=== PATIENT | female | born 1975 | race American Indian/Alaskan Native ===

== ENCOUNTER 2016-09-09 21:53 | Emergency (ER) | payer MEDICAID ==
[2016-09-09 22:06] VITALS: BMI 36.6
[2016-09-09 22:13] VITALS: RESP 20
[2016-09-09] MEDS ORDERED: Morphine 4 mg/ml ISec IVP STA (22:32)
[2016-09-09] MEDS ORDERED: Sodium Chloride 0.9% 1,000 ML IV STA (22:32)
--- NOTE | 2016-09-09 22:36 | ED PDOC ---
Arrival/HPI <Lew Jones - Last Filed: 09/09/16 23:19> - General Historian: Patient <Angel Silva - Last Filed: 09/10/16 00:13> - General Chief Complaint: Upper Extremity Problem/Injury Time Seen by Provider: 09/09/16 22:25 - History of Present Illness Narrative History of Present Illness (Text): 09/09/16 22:36 40 y/o female, pmh including rheumatoid arthritis and htn, nkda c/o rheumatoid flared up pain again x 2 days with no fall or trauma. Pt. stated that she has rt. elbow and generalized joint pain for the past 2 days, most severely today, no history of sickle cell disease, no fever or chills, no headache or night sweat, no numbness or tingling, no other medical or psychological complaints. ( Angel Silva) Past Medical History - Provider Review Nursing Documentation Reviewed: Yes - Infectious Disease Hx of Infectious Diseases: None - Cardiac Hx Hypertension: Yes - Pulmonary Hx Respiratory Disorders: No - Neurological Hx Neurological Disorder: No - HEENT Hx HEENT Disorder: No - Renal Hx Renal Disorder: No - Endocrine/Metabolic Hx Endocrine Disorders: No - Hematological/Oncological Hx Blood Disorders: No - Integumentary Hx Dermatological Disorder: No - Musculoskeletal/Rheumatological Hx Rheumatoid Arthritis: Yes Other/Comment: Carpal tunnel - Gastrointestinal Hx Gastrointestinal Disorders: No - Genitourinary/Gynecological Hx Genitourinary Disorders: No - Psychiatric Hx Psychophysiologic Disorder: No Hx Substance Use: Yes - Surgical History Hx Section: Yes - Anesthesia Hx Anesthesia: Yes Hx Anesthesia Reactions: No Hx Malignant Hyperthermia: No <Angel Silva - Last Filed: 09/10/16 00:13> Family/Social History - Physician Review Nursing Documentation Reviewed: Yes Family/Social History: Unknown Family HX Smoking Status: Heavy Smoker > 10 Cigarettes Daily Hx Alcohol Use: Yes Hx Substance Use: Yes Substance used: Marijuana <Angel Silva - Last Filed: 09/10/16 00:13> Allergies/Home Meds <Lew Jones - Last Filed: 09/09/16 23:19> <Angel Silva - Last Filed: 09/10/16 00:13> Allergies/Adverse Reactions: Allergies No Known Allergies Allergy (Verified 08/04/16 21:26) Home Medications: Home Meds Medication Instructions Recorded Confirmed Etanercept [Enbrel] 50 mg SQ QWK 08/17/16 08/17/16 Meloxicam [Mobic] 15 mg PO DAILY 08/17/16 08/17/16 Methotrexate 0 mg PO 08/17/16 Oxycodone HCl/Acetaminophen 1 each PO PRN PRN 08/17/16 08/17/16 [Percocet 10-325 mg Tablet] Valsartan [Diovan] 80 mg PO DAILY 08/17/16 08/17/16 amLODIPine [Norvasc] 10 mg PO DAILY 08/17/16 08/17/16 Review of Systems - Review of Systems Constitutional: absent: Fatigue, Fevers Eyes: absent: Vision Changes ENT: absent: Hearing Changes Respiratory: absent: Cough, Sputum Cardiovascular: absent: Chest Pain Gastrointestinal: absent: Abdominal Pain, Nausea, Vomiting Musculoskeletal: Arthralgias, Myalgias. absent: Back Pain, Neck Pain, Joint Swelling Skin: absent: Rash, Pruritis, Skin Lesions, Laceration, Abscess, Ulcer, Cellulitis Neurological: absent: Headache, Dizziness, Focal Weakness, Gait Changes, Speech Changes, Facial Droop, Disequilibrium, Seizure Psychiatric: absent: Anxiety, Depression, Suicidal Ideation <Angel Silva Q - Last Filed: 09/10/16 00:13> Physical Exam Vital Signs Reviewed: Yes Temperature: Afebrile Blood Pressure: Normal Pulse: Regular Respiratory Rate: Normal Appearance: Positive for: Well-Appearing, Non-Toxic, Uncomfortable Pain Distress: Severe Mental Status: Positive for: Alert and Oriented X 3 - Systems Exam Head: Present: Atraumatic, Normocephalic Pupils: Present: PERRL Extroacular Muscles: Present: EOMI Conjunctiva: Present: Normal Mouth: Present: Moist Mucous Membranes Neck: Present: Normal Range of Motion Respiratory/Chest: Present: Clear to Auscultation, Good Air Exchange. No: Respiratory Distress, Accessory Muscle Use Cardiovascular: Present: Regular Rate and Rhythm, Normal S1, S2. No: Murmurs Abdomen: Present: Normal Bowel Sounds. No: Tenderness, Distention, Peritoneal Signs Back: Present: Normal Inspection Upper Extremity: Present: Normal Inspection, Normal ROM, NORMAL PULSES, Neurovascularly Intact, Capillary Refill < 2s, Norm 2-Pt Discrimination. No: Cyanosis, Edema, Swelling, Erythema, Temperature Abnormalties, Deformity Lower Extremity: Present: Normal Inspection, Normal ROM, Capillary Refill < 2 s. No: Edema, Deformity Neurological: Present: GCS=15, Speech Normal, Motor Func Grossly Intact, Gait Normal, Memory Normal Skin: Present: Warm, Dry, Normal Color. No: Rashes Psychiatric: Present: Alert, Oriented x 3, Normal Insight, Normal Concentration <Angel Silva - Last Filed: 09/10/16 00:13> Vital Signs Temp Pulse Resp BP Pulse Ox 09/09/16 22:42 98.8 F 67 20 124/82 100 09/09/16 22:05 98.1 F 101 H 20 168/88 H 99 Medical Decision Making <Lew Jones - Last Filed: 09/09/16 23:19> - Lab Interpretations I have reviewed the lab results: Yes Interpretation: Abnormal lab values (K+2.9) <Angel Silva - Last Filed: 09/10/16 00:13> ED Course and Treatment: 09/09/16 22:43 -labs -IVF/toradol/solumedrol/morphine -observe and reassess 09/10/16 00:10 -Labs are non-significant except K+ 2.9 -Pain resolved with the medication, feeling much better now, request wiley wrap to the joint, wiley wraps applied with neurovascular intact. -Discharge home with education on continue your pain medication at home, wiley wrap, mobic, follow up with your own pmd and orthopedic within 2 days, return to the ER for any new or worsening signs or symptoms. (Angel Silva) - Lab Interpretations Lab Results: 09/09/16 23:00 09/09/16 23:00 Lab Results 09/09/16 23:40: Urine HCG, Qual Negative 09/09/16 23:00: WBC 8.8, RBC 4.37, Hgb 12.8, Hct 36.0, MCV 82.4, MCH 29.3, MCHC 35.6, RDW 15.0 H, Plt Count 261, MPV 10.5, Gran % 48.6 L, Lymph % (Auto) 40.3 H , Humphreys % (Auto) 9.3 H, Eos % (Auto) 1.3 L, Baso % (Auto) 0.5, Gran # 4.28, Lymph # 3.6 H, Humphreys # 0.8 H, Eos # 0.1, Baso # 0.04, Sodium 138, Potassium 2.9 L *, Chloride 101, Carbon Dioxide 30, Anion Gap 10, BUN 11, Creatinine 0.7, Est GFR ( Amer) > 60, Est GFR (Non-Af Amer) > 60, Random Glucose 84, Calcium 9.1, Total Bilirubin 0.4, AST 19, ALT 30, Alkaline Phosphatase 64, Total Protein 7.6, Albumin 3.6, Globulin 4.0, Albumin/Globulin Ratio 0.9 L - Medication Orders Current Medication Orders: Discontinued Medications Sodium Chloride (Sodium Chloride 0.9%) 1,000 mls @ 999 mls/hr IV .Q1H1M STA Stop: 09/09/16 23:32 Last Admin: 09/09/16 23:32 Dose: 999 MLS/HR eMAR Start Stop Document 09/09/16 23:32 EQ (Rec: 09/09/16 23:32 EQ [place] [id number]) Intravenous Solution Start Date 09/09/16 Start Time 23:32 Ketorolac Tromethamine (Toradol) 30 mg IVP STAT STA Stop: 09/09/16 22:33 Last Admin: 09/09/16 23:32 Dose: 30 MG IVP Administration Document 09/09/16 23:32 EQ (Rec: 09/09/16 23:32 EQ [id number]) Charges for Administration # of IVP Administrations 1 Methylprednisolone (Solu-Medrol) 125 mg IVP STAT STA Stop: 09/09/16 22:33 Last Admin: 09/09/16 23:32 Dose: 125 MG IVP Administration Document 09/09/16 23:32 EQ (Rec: 09/09/16 23:32 EQ [id number]) Charges for Administration # of IVP Administrations 1 Morphine Sulfate (Morphine) 4 mg IVP STAT STA Stop: 09/09/16 22:33 Last Admin: 09/09/16 23:31 Dose: 4 MG MAR Pain Assessment Document 09/09/16 23:31 EQ (Rec: 09/09/16 23:31 EQ [id number]) Pain Reassessment Is this a pain reassessment? No IVP Administration Document 09/09/16 23:31 EQ (Rec: 09/09/16 23:31 EQ [id number]) Charges for Administration # of IVP Administrations 1 Potassium Chloride (K-Dur 20 Meq Er Tab) 40 meq PO STAT STA Stop: 09/10/16 00:09 - PA / SECURITIES COMPLIANCE EXAMINER / Resident Statement KACEY has reviewed & agrees with the documentation as recorded. <Lew Jones - Last Filed: 09/09/16 23:19> - PA / SECURITIES COMPLIANCE EXAMINER / Resident Statement KACEY has reviewed & agrees with the documentation as recorded. <Angel Silva - Last Filed: 09/10/16 00:13> Disposition/Present on Arrival <Lew Jones - Last Filed: 09/09/16 23:19> - Present on Arrival Any Indicators Present on Arrival: No History of DVT/PE: No History of Uncontrolled Diabetes: No Urinary Catheter: No History of Decub. Ulcer: No History Surgical Site Infection Following: None - Disposition Have Diagnosis and Disposition been Completed?: Yes Disposition Time: 22:43 Patient Plan: Discharge <Angel Silva - Last Filed: 09/10/16 00:13> - Disposition Diagnosis: Arthritis, Pain management Disposition: HOME/ ROUTINE Patient Problems: Current Active Problems Problem Status Diagnosed Arthritis Acute Pain management Acute Condition: IMPROVED Additional Instructions: Discharge home with education on continue your pain medication at home, wiley letyap aleksandra, follow up with your own pmd and orthopedic within 2 days, return to the ER for any new or worsening signs or symptoms. Prescriptions: Meloxicam [Mobic] 15 mg PO DAILY PRN #14 tab PRN Reason: Other Referrals: Jinny Hines MD [Primary Care Provider] - Follow up with primary Jayson Martinez III, MD [Medical Doctor] - Follow up with primary Forms: WORK NOTE
[2016-09-09 22:44] VITALS: BP 124/82; PULSE 67; TEMP 98.8; O2SAT 100
[2016-09-09 23:10] LABS: ADD MANUAL DIFF? NO
[2016-09-09 23:17] LABS: BASO # 0.04 K/mm3 (0.0-2.0); BASO % 0.5 % (0.0-3.0); EOS # 0.1 (0.0-0.7); EOS % 1.3 % (1.5-5.0); GRAN # 4.28 (1.4-6.5); GRAN % 48.6 % (50.0-68.0); LYMPH # 3.6 (1.2-3.4); LYMPH % 40.3 % (22.0-35.0); MEAN CELL VOLUME 82.4 fL (80.0-105.0); MEAN CORPUSCULAR HEMOGLOBIN 29.3 pg (25.0-35.0); MEAN CORPUSCULAR HGB CONC 35.6 g/dl (31.0-37.0); MEAN PLATELET VOLUME 10.5 fl (7.0-11.0); MONO # 0.8 (0.1-0.6); MONO % 9.3 % (1.0-6.0); PLATELET COUNT 261 10^3/uL (120.0-450.0); WHITE BLOOD COUNT 8.8 10^3/ul (4.5-11.0)
[2016-09-09 23:23] LABS: ALB/GLOB RATIO 0.9 (1.1-1.8); ALKALINE PHOSPHATASE 64 U/L (38-133); ALT/SGPT 30 U/L (7-56); AST/SGOT 19 U/L (15-39); BILIRUBIN,TOTAL 0.4 mg/dL (0.2-1.3); BLOOD UREA NITROGEN 11 mg/dL (7-21); CALCIUM 9.1 mg/dL (8.4-10.5); CARBON DIOXIDE 30 mmol/L (21-33); CHLORIDE 101 mmol/L (98-107); GFR AFRICAN-AMERICAN > 60; GLUCOSE,RANDOM 84 mg/dL (70-110); SODIUM 138 mmol/L (132-148); TOTAL PROTEIN 7.6 g/dL (5.8-8.3)
[2016-09-09 23:25] LABS: POTASSIUM 2.9 mmol/L (3.6-5.0)
[2016-09-10] MEDS ORDERED: Potassium Chloride 20 mEq ER Tab PO STA (00:08)
== END 2016-09-10 00:20 | disposition home or self-care (01) ==
LOC: ED 21:53
DX: M19.90 Unspecified osteoarthritis, unspecified site (principal); I10 Essential (primary) hypertension; F17.210 Nicotine dependence, cigarettes, uncomplicated
CPT/HCPCS: 29240; 80053; 84703; 85025; 96374; 96375; 99284; J1885; J2270; J2930; J7040

== ENCOUNTER 2016-09-28 21:30 | Emergency (ER) | payer MEDICAID ==
[2016-09-28 21:31] VITALS: BMI 36.6
[2016-09-28 22:48] VITALS: TEMP 98
[2016-09-28] MEDS ORDERED: Morphine 4 mg/ml ISec IVP STA (23:04)
--- NOTE | 2016-09-28 23:09 | ED PDOC ---
Arrival/HPI <Lew Jones - Last Filed: 09/29/16 00:41> - General Historian: Patient - History of Present Illness Time/Duration: > month Symptom Onset: Gradual Symptom Course: Worsening Quality: Aching, Pressure, Throbbing Severity Level: 9 <Triny Mejia - Last Filed: 09/29/16 01:07> - General Chief Complaint: Lower Extremity Problem/Injury Time Seen by Provider: 09/28/16 22:48 - History of Present Illness Narrative History of Present Illness (Text): 09/28/16 23:09 40-year-old female with a history of rheumatoid arthritis presents today with a flareup of her rheumatoid arthritis. She is complaining of pain and swelling to the right knee as well as the right elbow. She denies any recent trauma or injury. She denies fevers or chills. Patient states she sees a rawhide bone roller and is now in the early stages of possibly starting an infusion for her rheumatoid arthritis. Patient states she was seen here in the emergency room at the beginning of the month and was given injections for pain which seemed to help for the past 2 weeks. Patient presents today with a flareup of the pain. She is complaining of throbbing aching tightness in the right knee with limited range of motion. Patient also complaining of pain and swelling to the right elbow. She denies chest pain or shortness of breath. No abdominal pain. Patient states she takes Percocets at home for pain as well as prednisone 10 mg daily as well as multiple other medications. (Triny Mejia) Past Medical History - Provider Review Nursing Documentation Reviewed: Yes - Travel History Have you recently traveled outside [place] w/in the past 3 mons?: No - Infectious Disease Hx of Infectious Diseases: None - Cardiac Hx Hypertension: Yes - Pulmonary Hx Respiratory Disorders: No - Neurological Hx Neurological Disorder: No - HEENT Hx HEENT Disorder: No - Renal Hx Renal Disorder: No - Endocrine/Metabolic Hx Endocrine Disorders: No - Hematological/Oncological Hx Blood Disorders: No - Integumentary Hx Dermatological Disorder: No - Musculoskeletal/Rheumatological Hx Rheumatoid Arthritis: Yes Other/Comment: Carpal tunnel - Gastrointestinal Hx Gastrointestinal Disorders: No - Genitourinary/Gynecological Hx Genitourinary Disorders: No - Psychiatric Hx Psychophysiologic Disorder: No Hx Substance Use: Yes - Surgical History Hx Section: Yes - Anesthesia Hx Anesthesia: Yes Hx Anesthesia Reactions: No Hx Malignant Hyperthermia: No <Triny Mejia - Last Filed: 09/29/16 01:07> Family/Social History - Physician Review Nursing Documentation Reviewed: Yes Family/Social History: Unknown Family HX Smoking Status: Heavy Smoker > 10 Cigarettes Daily Hx Alcohol Use: Yes Hx Substance Use: Yes Substance used: Marijuana <Triny Mejia - Last Filed: 09/29/16 01:07> Allergies/Home Meds <Lew Jones - Last Filed: 09/29/16 00:41> <Triny Mejia - Last Filed: 09/29/16 01:07> Allergies/Adverse Reactions: Allergies No Known Allergies Allergy (Verified 08/04/16 21:26) Home Medications: Home Meds Medication Instructions Recorded Confirmed Etanercept [Enbrel] 50 mg SQ QWK 08/17/16 08/17/16 Meloxicam [Mobic] 15 mg PO DAILY 08/17/16 08/17/16 Methotrexate 0 mg PO 08/17/16 Oxycodone HCl/Acetaminophen 1 each PO PRN PRN 08/17/16 08/17/16 [Percocet 10-325 mg Tablet] Valsartan [Diovan] 80 mg PO DAILY 08/17/16 08/17/16 amLODIPine [Norvasc] 10 mg PO DAILY 08/17/16 08/17/16 Review of Systems - Review of Systems Constitutional: absent: Fatigue, Fevers Respiratory: absent: SOB, Cough Cardiovascular: absent: Chest Pain, Palpitations Gastrointestinal: absent: Abdominal Pain, Nausea, Vomiting Genitourinary Female: absent: Dysuria, Frequency, Hematuria Musculoskeletal: Arthralgias, Joint Swelling Skin: absent: Rash, Pruritis Neurological: absent: Headache, Dizziness Psychiatric: absent: Anxiety, Depression <Triny Mejia - Last Filed: 09/29/16 01:07> Physical Exam Vital Signs Reviewed: Yes Temperature: Afebrile Blood Pressure: Normal Pulse: Regular Respiratory Rate: Normal Appearance: Positive for: Well-Appearing, Non-Toxic, Comfortable Pain Distress: None Mental Status: Positive for: Alert and Oriented X 3 - Systems Exam Head: Present: Atraumatic Mouth: Present: Moist Mucous Membranes Neck: Present: Normal Range of Motion Respiratory/Chest: Present: Clear to Auscultation, Good Air Exchange. No: Respiratory Distress, Accessory Muscle Use Cardiovascular: Present: Regular Rate and Rhythm, Normal S1, S2. No: Murmurs Back: Present: Normal Inspection Upper Extremity: Present: Normal ROM, NORMAL PULSES, Tenderness (right elbow; + minimal edema; full rom of elbow; sensation and distal pulses intact;cap refill <2. ), Swelling, Neurovascularly Intact, Capillary Refill < 2s. No: Erythema, Deformity Lower Extremity: Present: NORMAL PULSES, Normal ROM, Tenderness (right knee; + edema, no erythema; no ecchymosis; sensation and distal pulses intact; cap refill <2. no warmth. ), Swelling, Neurovascularly Intact, Capillary Refill < 2 s. No: CALF TENDERNESS, Erythema, Deformity, Temperature Abnormalties Neurological: Present: GCS=15, Speech Normal Skin: Present: Warm, Dry, Normal Color. No: Rashes Psychiatric: Present: Alert, Oriented x 3 <Triny Mejia - Last Filed: 09/29/16 01:07> Vital Signs Temp Pulse Resp BP Pulse Ox 09/28/16 22:46 98 F 97 H 18 135/74 98 Medical Decision Making <Lew Jones - Last Filed: 09/29/16 00:41> <Triny Mejia - Last Filed: 09/29/16 01:07> ED Course and Treatment: 09/28/16 23:15 40yr old female with hx of RA. with flare up. solumedrol 125mg morphine 4mg IV toradol 30mg iv duplex right leg; no dvt. + bakers cyst pt reassessment; pt feeling better after medications with d/c home to f/u with orthopedist/rawhide bone roller. All results discussed in depth with the patient. Advised follow-up with primary care physician within the next 2 days. I advised follow-up with a rawhide bone roller and orthopedist. Advised rest, ice, compression, elevation. Advised to return if symptoms worsen or persist or if new concerning symptoms develop Patient verbalizes understanding of discharge instructions and need for immediate followup. all aspects of this case were discussed the attending of record. impression; rheumatoid arthritis, knee pain, elbow pain Continue medications as prescribed Follow-up the primary care physician within the next 2 days Rest, ice, compression, elevation Follow-up with the rawhide bone roller within the next 2 days Increase fluids Return immediately if symptoms worsen or persist or if new concerning symptoms develop (Triny Mejia) - RAD Interpretation Radiology Orders: 09/28/16 23:02 DUPLEX LOWER EXTRM VEIN RIGHT [US] Stat - Medication Orders Current Medication Orders: Discontinued Medications Ketorolac Tromethamine (Toradol) 30 mg IVP STAT STA Stop: 09/28/16 23:05 Last Admin: 09/28/16 23:27 Dose: 30 MG IVP Administration Document 09/28/16 23:27 YP (Rec: 09/28/16 23:27 YP [id number]) Charges for Administration # of IVP Administrations 1 Methylprednisolone (Solu-Medrol) 125 mg IVP STAT STA Stop: 09/28/16 23:03 Last Admin: 09/28/16 23:27 Dose: 125 MG IVP Administration Document 09/28/16 23:27 YP (Rec: 09/28/16 23:27 YP [id number]) Charges for Administration # of IVP Administrations 1 Morphine Sulfate (Morphine) 4 mg IVP STAT STA Stop: 09/28/16 23:05 Last Admin: 09/28/16 23:27 Dose: 4 MG MAR Pain Assessment Document 09/28/16 23:27 YP (Rec: 09/28/16 23:27 YP [id number]) Pain Reassessment Is this a pain reassessment? No Sleep Is patient sleeping during reassessment? No Presence of Pain Presence of Pain Yes IVP Administration Document 09/28/16 23:27 YP (Rec: 09/28/16 23:27 YP [id number]) Charges for Administration # of IVP Administrations 1 - PA / HYDRATION PLANT OPERATOR / Resident Statement MD/DO has reviewed & agrees with the documentation as recorded. <Lew Jones - Last Filed: 09/29/16 00:41> Disposition/Present on Arrival <Lew Jones - Last Filed: 09/29/16 00:41> - Present on Arrival Any Indicators Present on Arrival: No History of DVT/PE: No History of Uncontrolled Diabetes: No Urinary Catheter: No History of Decub. Ulcer: No History Surgical Site Infection Following: None - Disposition Have Diagnosis and Disposition been Completed?: Yes Disposition Time: 01:04 Patient Plan: Discharge <Triny Mejia - Last Filed: 09/29/16 01:07> - Disposition Diagnosis: Arthritis, Knee pain, Elbow pain, Urbano's cyst Disposition: HOME/ ROUTINE Patient Problems: Current Active Problems Problem Status Diagnosed Arthritis Acute Condition: GOOD Discharge Instructions (ExitCare): Urbano's Cyst (ED) Additional Instructions: Continue medications as prescribed Follow-up the primary care physician within the next 2 days Rest, ice, compression, elevation Follow-up with the rawhide bone roller within the next 2 days Increase fluids Return immediately if symptoms worsen or persist or if new concerning symptoms develop Referrals: Harshil Us DO [Staff Provider] - Follow up with primary [facility] [place] [Outside] - Follow up with primary [facility] [Outside] - Follow up with primary Jinny Hines MD [Family Provider] - Follow up with primary Forms: WORK NOTE
[2016-09-29 01:49] VITALS: BP 140/57; PULSE 86; RESP 16; O2SAT 95
--- NOTE | 2016-09-29 10:59 | US ---
PROCEDURE: Right lower extremity venous US HISTORY: Leg pain and swelling. Evaluate for DVT. PHYSICIAN(S): Judd Grande M.D. TECHNIQUE: Duplex sonography and color-flow Doppler with graded compression were used to evaluate the deep venous system of the right lower extremity. FINDINGS: The visualized deep venous system of the right lower extremity is sonographically normal and compressible. Normal waveforms and augmentation are seen. There is no sonographic evidence for deep venous thrombosis in the visualized segments of the right lower extremity. There is a lobulated 3.8 x 5.4 cm fluid collection in the right popliteal fossa, consistent with a Urbano cyst. IMPRESSION: 1. No sonographic evidence for deep venous thrombosis in the visualized segments of the right lower extremity.
== END 2016-09-29 01:48 | disposition home or self-care (01) ==
LOC: ED 21:30
DX: M25.561 Pain in right knee (principal); M25.521 Pain in right elbow; M71.21 Synovial cyst of popliteal space [Baker], right knee; M19.90 Unspecified osteoarthritis, unspecified site
CPT/HCPCS: 29530; 93971; 96374; 96375; 99285; J1885; J2270; J2930

== ENCOUNTER 2016-11-12 12:02 | Emergency (ER) | payer MEDICAID ==
[2016-11-12 12:29] VITALS: TEMP 98.8; BMI 35.3
--- NOTE | 2016-11-12 13:30 | ED PDOC ---
Arrival/HPI <Lori Haines - Last Filed: 11/12/16 13:59> - History of Present Illness Symptom Onset: Sudden Symptom Course: Unchanged Activities at Onset: Rest Context: Home <CyrusSergei santo - Last Filed: 11/12/16 15:20> - General Chief Complaint: Pain, Chronic Time Seen by Provider: 11/12/16 12:26 - History of Present Illness Narrative History of Present Illness (Text): 11/12/16 13:26 40 y/o F w/ PMHx of RA presents to the ED c/o pain in R knee and elbow. Pt was recently started on Retuxibab in October and has received 2 infusions. Pt reports only minor relief from infusions to date. Pt states pain in joints started yesterday w/ swelling this AM upon waking. Pt reports only minimal relief from prescription meds. Pt deneis recent injury, F/C, illness. Pt also complains of new numbness in 3rd toe which pt believes is 2/2 swelling and Urbano's cysts. Pt reports recent high BP of 160s/120s. Pt reports taking all home meds. (Lori Haines) Past Medical History - Provider Review Nursing Documentation Reviewed: Yes - Infectious Disease Hx of Infectious Diseases: None - Cardiac Hx Hypertension: Yes - Pulmonary Hx Respiratory Disorders: No - Neurological Hx Neurological Disorder: No - HEENT Hx HEENT Disorder: No - Renal Hx Renal Disorder: No - Endocrine/Metabolic Hx Endocrine Disorders: No - Hematological/Oncological Hx Blood Disorders: No - Integumentary Hx Dermatological Disorder: No - Musculoskeletal/Rheumatological Hx Rheumatoid Arthritis: Yes Other/Comment: Carpal tunnel - Gastrointestinal Hx Gastrointestinal Disorders: No - Genitourinary/Gynecological Hx Genitourinary Disorders: No - Psychiatric Hx Psychophysiologic Disorder: No Hx Substance Use: Yes - Surgical History Hx Section: Yes - Anesthesia Hx Anesthesia: Yes Hx Anesthesia Reactions: No Hx Malignant Hyperthermia: No <Lori Haines - Last Filed: 11/12/16 13:59> Family/Social History - Physician Review Nursing Documentation Reviewed: Yes Family/Social History: No Known Family HX Smoking Status: Heavy Smoker > 10 Cigarettes Daily Hx Alcohol Use: Yes Hx Substance Use: Yes Substance used: Marijuana <Lori Haines - Last Filed: 11/12/16 13:59> Allergies/Home Meds <Lori Haines - Last Filed: 11/12/16 13:59> <Sergei Yates - Last Filed: 11/12/16 15:20> Allergies/Adverse Reactions: Allergies Penicillins Allergy (Verified 11/12/16 12:29) RASH Home Medications: Home Meds Medication Instructions Recorded Confirmed Meloxicam [Mobic] 15 mg PO DAILY 08/17/16 11/12/16 Methotrexate 15 mg PO WED 08/17/16 11/12/16 Oxycodone HCl/Acetaminophen 1 each PO PRN PRN 08/17/16 11/12/16 [Percocet 10-325 mg Tablet] Valsartan [Diovan] 80 mg PO DAILY 08/17/16 11/12/16 amLODIPine [Norvasc] 10 mg PO DAILY 08/17/16 11/12/16 predniSONE [Prednisone] 10 mg PO BID 11/12/16 11/12/16 riTUXimab [Rituxan] 100 mg IV ONCE 11/12/16 11/12/16 Review of Systems - Physician Review All systems were reviewed & negative as marked: Yes - Review of Systems Constitutional: absent: Fevers Respiratory: absent: Cough <YancyLori - Last Filed: 11/12/16 13:59> Physical Exam Temperature: Afebrile Blood Pressure: Hypertensive Pulse: Tachycardic Respiratory Rate: Normal Appearance: Positive for: Well-Appearing, Non-Toxic Pain Distress: Mild Mental Status: Positive for: Alert and Oriented X 3 - Systems Exam Head: Present: Atraumatic, Normocephalic Pupils: Present: PERRL Extroacular Muscles: Present: EOMI Conjunctiva: Present: Normal Mouth: Present: Moist Mucous Membranes Respiratory/Chest: No: Respiratory Distress, Accessory Muscle Use Cardiovascular: Present: Tachycardic Upper Extremity: Present: Normal Inspection, Swelling (minimal swelling R elbow) Lower Extremity: Present: CALF TENDERNESS (chronic), Swelling (R knee), Other ( MS 4/5 R knee flexion/extension, plantarflexion. MS 5/5 LLE). No: Edema, Cyanosis Neurological: Present: GCS=15, Speech Normal Skin: Present: Warm, Dry, Normal Color Psychiatric: Present: Alert, Oriented x 3, Normal Insight, Normal Concentration <YancyLori - Last Filed: 11/12/16 13:59> Medical Decision Making <Lori Haines - Last Filed: 11/12/16 13:59> <Sergei Yates - Last Filed: 11/12/16 15:20> ED Course and Treatment: 11/12/16 13:33 40 y/o F w/ RA flare - Hydrocortisone 100mg - Toradol 30mg - reassess and dispo (Lori Haines) Patient Seen With Resident: In agreement with resident note. Patient was seen and evaluated with resident, came up with plan and treatment together. 11/12/16 15:19 pt seen with resident. pt with exacerbation of RA, noted multiple visits for similar. pain meds dosed in emergency room. pain improved. advise continued outpt management. (Sergei Yates) - Medication Orders Current Medication Orders: Discontinued Medications Hydrocortisone Sodium Succinate (Solu-Cortef) 100 mg IM STAT STA Stop: 11/12/16 13:47 Last Admin: 11/12/16 13:48 Dose: 100 mg Ketorolac Tromethamine (Toradol) 60 mg IM STAT STA Stop: 11/12/16 13:47 Last Admin: 11/12/16 13:48 Dose: 60 mg Disposition/Present on Arrival - Present on Arrival Any Indicators Present on Arrival: No History of DVT/PE: No History of Uncontrolled Diabetes: No Urinary Catheter: No History of Decub. Ulcer: No History Surgical Site Infection Following: None - Disposition Have Diagnosis and Disposition been Completed?: Yes Disposition Time: 14:00 <Lori Haines - Last Filed: 11/12/16 13:59> <Sergei Yates - Last Filed: 11/12/16 15:20> - Disposition Diagnosis: Rheumatoid arthritis flare Disposition: HOME/ ROUTINE Condition: GOOD Discharge Instructions (ExitCare): Rheumatoid Arthritis (ED), RICE Therapy (ED) Additional Instructions: follow up w/ Appliance Technician and PMD in 1 week Take all medication as prescribed Please return to the hospital if symptoms do not improve or worsen Referrals: Jinny Hines MD [Primary Care Provider] - Follow up with primary
[2016-11-12 14:28] VITALS: BP 160/99; PULSE 99; RESP 17; O2SAT 98
== END 2016-11-12 14:30 | disposition home or self-care (01) ==
LOC: ED 12:02
DX: M06.9 Rheumatoid arthritis, unspecified (principal); I10 Essential (primary) hypertension; F17.210 Nicotine dependence, cigarettes, uncomplicated
CPT/HCPCS: 96372; 99284; J1720; J1885

== ENCOUNTER 2017-04-03 07:37 | Emergency (ER) | payer MEDICAID ==
[2017-04-03 08:00] VITALS: BP 136/87; PULSE 110; RESP 18; TEMP 98.1; O2SAT 100; BMI 36.9
--- NOTE | 2017-04-03 08:11 | ED PDOC ---
Arrival/HPI - General Chief Complaint: Lower Extremity Problem/Injury Time Seen by Provider: 04/03/17 07:44 Historian: Patient - History of Present Illness Narrative History of Present Illness (Text): 04/03/17 08:05 A 41 year old female whose past medical history includes RA, present to the emergency department with exacerbating of rheumatoid arthritis. The patient states that she has been feeling throbbing pain in her knees. The patient states that the symptoms are similar to past episodes. The patient denies fevers , chills, headache, dizziness, chest pain, shortness of breath, dyspnea on exertion, cough, sore throat, abdominal pain, nausea, vomiting, diarrhea, neck pain, urinary/bowel changes, trauma/injury or any other complaint. PMD: Dr. Hines Time/Duration: Prior to Arrival Symptom Onset: Sudden Symptom Course: Unchanged Activities at Onset: Rest, Light Context: Home Past Medical History - Provider Review Nursing Documentation Reviewed: Yes - Infectious Disease Hx of Infectious Diseases: None - Cardiac Hx Hypertension: Yes - Pulmonary Hx Respiratory Disorders: No - Neurological Hx Neurological Disorder: No - HEENT Hx HEENT Disorder: No - Renal Hx Renal Disorder: No - Endocrine/Metabolic Hx Endocrine Disorders: No - Hematological/Oncological Hx Blood Disorders: No - Integumentary Hx Dermatological Disorder: No - Musculoskeletal/Rheumatological Hx Rheumatoid Arthritis: Yes Other/Comment: muscle spasm, walks with a cane, RA - Gastrointestinal Hx Gastrointestinal Disorders: No - Genitourinary/Gynecological Hx Genitourinary Disorders: No - Psychiatric Hx Psychophysiologic Disorder: No Hx Substance Use: Yes (smokes marijuana) - Surgical History Hx Section: Yes - Anesthesia Hx Anesthesia: Yes Hx Anesthesia Reactions: No Hx Malignant Hyperthermia: No Family/Social History - Physician Review Nursing Documentation Reviewed: Yes Family/Social History: No Known Family HX Smoking Status: Current Some Days Smoker Hx Alcohol Use: Yes Frequency of alcohol use: Socially Hx Substance Use: Yes (smokes marijuana) Substance used: Marijuana Allergies/Home Meds Allergies/Adverse Reactions: Allergies Penicillins Allergy (Verified 04/03/17 07:55) RASH Home Medications: Home Meds Medication Instructions Recorded Confirmed Methotrexate 15 mg PO WED 08/17/16 04/03/17 Valsartan [Diovan] 160 mg PO DAILY 08/17/16 04/03/17 amLODIPine [Norvasc] 10 mg PO DAILY 08/17/16 04/03/17 Diclofenac Sodium [Voltaren] 1 appl TOP BID 10/19/16 04/03/17 Folic Acid 1 mg PO DAILY 10/19/16 04/03/17 Ibuprofen [Motrin Tab] 800 mg PO Q8 10/19/16 04/03/17 Meloxicam 15 mg PO DAILY 10/19/16 04/03/17 Multivitamin [Multiple Vitamins] 1 tab PO DAILY 10/19/16 04/03/17 Omeprazole 20 mg PO DAILY 10/19/16 04/03/17 Oxycodone HCl/Acetaminophen 1 each PO BID 10/19/16 04/03/17 [Endocet 10-325 mg Tablet] Potassium Chloride [Klor-Con 10] 10 meq PO BID 10/19/16 04/03/17 SulfaSALAzine [Azulfidine] 1 tab PO BID 10/19/16 04/03/17 Tizanidine HCl 4 mg PO DAILY 10/19/16 04/03/17 predniSONE [Prednisone] 10 mg PO BID 11/12/16 04/03/17 riTUXimab [Rituxan] 100 mg IV ONCE 11/12/16 04/03/17 Review of Systems - Physician Review All systems were reviewed & negative as marked: Yes - Review of Systems Constitutional: absent: Fevers, Night Sweats ENT: absent: Sore Throat Respiratory: absent: SOB, Cough Cardiovascular: absent: Chest Pain, BIANCHI Gastrointestinal: absent: Abdominal Pain, Diarrhea, Nausea, Vomiting Musculoskeletal: Other (Exacerbation of Rheumatoid Arthritis.). absent: Neck Pain Neurological: absent: Headache, Dizziness Physical Exam Vital Signs Reviewed: Yes Vital Signs Temp Pulse Resp BP Pulse Ox 04/03/17 07:56 98.1 F 110 H 18 136/87 100 Temperature: Afebrile Blood Pressure: Normal Pulse: Tachycardic Respiratory Rate: Normal Appearance: Positive for: Non-Toxic Pain Distress: Mild Mental Status: Positive for: Alert and Oriented X 3 - Systems Exam Head: Present: Atraumatic, Normocephalic Pupils: Present: PERRL Extroacular Muscles: Present: EOMI Conjunctiva: Present: Normal Mouth: Present: Moist Mucous Membranes Neck: Present: Normal Range of Motion Respiratory/Chest: Present: Clear to Auscultation, Good Air Exchange. No: Respiratory Distress, Accessory Muscle Use Cardiovascular: Present: Regular Rate and Rhythm, Normal S1, S2. No: Murmurs Abdomen: Present: Normal Bowel Sounds. No: Tenderness, Distention, Peritoneal Signs Back: Present: Normal Inspection Upper Extremity: Present: Normal Inspection. No: Cyanosis, Edema Lower Extremity: Present: Deformity (chronic appearing deformities to her extremities.) Neurological: Present: GCS=15, CN II-XII Intact, Speech Normal Skin: Present: Warm, Dry, Normal Color. No: Rashes Psychiatric: Present: Alert, Oriented x 3, Normal Insight, Normal Concentration Medical Decision Making ED Course and Treatment: 04/03/17 08:14 Impression: A 41 year old female presents to the emergency department for exacerbation of rheumatoid arthritis. Plan: -- Labs -- Urinalysis -- Toradol and SOLU-Medrol -- Reassess and disposition Prior Visits: Notes and results from previous visits were reviewed. Patient was last seen in the emergency department on 11/12/2016. The patient was seen in the emergency department for pain in the right knee and elbow. the patient was discharged home and advised to follow up with her PMD and Braiding Operator. Progress Notes: 04/03/17 10:41 njrx shows multiple narcotic rx. will treat with non narcotic medication. pain improving in er. pt ambulatory stable for dc - Lab Interpretations Lab Results: 04/03/17 08:30 04/03/17 08:30 Lab Results 04/03/17 08:35: Urine HCG, Qual Negative 04/03/17 08:30: Sodium 139, Potassium 3.5 L, Chloride 100, Carbon Dioxide 29, Anion Gap 14, BUN 8, Creatinine 0.7, Est GFR ( Amer) > 60, Est GFR (Non- Af Amer) > 60, Random Glucose 143 H, Calcium 9.7, Total Bilirubin 1.2, AST 22, ALT 18, Alkaline Phosphatase 67, Total Protein 7.7, Albumin 4.2, Globulin 3.5, Albumin/Globulin Ratio 1.2 04/03/17 08:30: WBC 10.1, RBC 5.22, Hgb 14.5, Hct 41.7, MCV 79.9 L, MCH 27.8, MCHC 34.8, RDW 16.3 H, Plt Count 276, MPV 10.9, Gran % 72.4 H, Lymph % (Auto) 17.1 L, Luce % (Auto) 8.7 H, Eos % (Auto) 1.5, Baso % (Auto) 0.3, Gran # 7.35 H , Lymph # 1.7, Luce # 0.9 H, Eos # 0.2, Baso # 0.03 I have reviewed the lab results: Yes - Medication Orders Current Medication Orders: Discontinued Medications Ketorolac Tromethamine (Toradol) 30 mg IVP STAT STA Stop: 04/03/17 08:06 Last Admin: 04/03/17 08:35 Dose: 30 mg MAR Pain Assessment Document 04/03/17 08:35 CNR (Rec: 04/03/17 08:36 CNR [id number]) Pain Reassessment Is this a pain reassessment? Yes Sleep Is patient sleeping during reassessment? No Presence of Pain Presence of Pain Yes Location Left, Right or Bilateral Bilateral Pain Location Body Site Knee Description Description Constant IVP Administration Document 04/03/17 08:35 CNR (Rec: 04/03/17 08:36 CNR [id number]) Charges for Administration # of IVP Administrations 1 Methylprednisolone (Solu-Medrol) 125 mg IVP STAT STA Stop: 04/03/17 08:06 Last Admin: 04/03/17 08:36 Dose: 125 mg IVP Administration Document 04/03/17 08:36 CNR (Rec: 04/03/17 08:36 CNR [id number]) Charges for Administration # of IVP Administrations 1 - Scribe Statement The provider has reviewed the documentation as recorded by the Charles Flannery Provider Scribe Attestation: All medical record entries made by the Hammadibnicole were at my direction and personally dictated by me. I have reviewed the chart and agree that the record accurately reflects my personal performance of the history, physical exam, medical decision making, and the department course for this patient. I have also personally directed, reviewed, and agree with the discharge instructions and disposition. Disposition/Present on Arrival - Present on Arrival Any Indicators Present on Arrival: No History of DVT/PE: No History of Uncontrolled Diabetes: No Urinary Catheter: No History of Decub. Ulcer: No History Surgical Site Infection Following: None - Disposition Have Diagnosis and Disposition been Completed?: Yes Diagnosis: Arthritis Disposition: HOME/ ROUTINE Disposition Time: 09:00 Condition: STABLE Discharge Instructions (ExitCare): Arthritis (ED) Additional Instructions: please follow up with your doctor. return to er with worsening symptoms or concerns. Prescriptions: Naproxen 500 mg PO BID PRN #14 tab PRN Reason: Pain, Mild (1-3) Prednisone 50 mg PO DAILY #4 tablet Forms: [employer] ([employer])
[2017-04-03 09:04] LABS: BASO # 0.03 K/mm3 (0.0-2.0); BASO % 0.3 % (0.0-3.0); EOS # 0.2 (0.0-0.7); EOS % 1.5 % (1.5-5.0); GRAN # 7.35 (1.4-6.5); GRAN % 72.4 % (50.0-68.0); HEMATOCRIT 41.7 % (36.0-48.0); LYMPH # 1.7 (1.2-3.4); LYMPH % 17.1 % (22.0-35.0); MEAN CELL VOLUME 79.9 fl (80.0-105.0); MEAN CORPUSCULAR HEMOGLOBIN 27.8 pg (25.0-35.0); MEAN CORPUSCULAR HGB CONC 34.8 g/dl (31.0-37.0); MEAN PLATELET VOLUME 10.9 fl (7.0-11.0); MONO # 0.9 (0.1-0.6); MONO % 8.7 % (1.0-6.0); RED CELL DISTRIBUTION WIDTH 16.3 % (11.5-14.5); WHITE BLOOD COUNT 10.1 10^3/ul (4.5-11.0)
[2017-04-03 09:13] LABS: ALB/GLOB RATIO 1.2 (1.1-1.8); ALKALINE PHOSPHATASE 67 U/L (38-126); ALT/SGPT 18 U/L (7-56); AST/SGOT 22 U/L (14-36); BILIRUBIN,TOTAL 1.2 mg/dL (0.2-1.3); BLOOD UREA NITROGEN 8 mg/dL (7-21); CALCIUM 9.7 mg/dL (8.4-10.5); CARBON DIOXIDE 29 mmol/L (21-33); CHLORIDE 100 mmol/L (98-107); GFR AFRICAN-AMERICAN > 60; GLUCOSE,RANDOM 143 mg/dL (70-110); POTASSIUM 3.5 mmol/L (3.6-5.0); SODIUM 139 mmol/L (132-148); TOTAL PROTEIN 7.7 g/dL (5.8-8.3)
== END 2017-04-03 09:30 | disposition home or self-care (01) ==
LOC: ED 07:37
DX: M06.9 Rheumatoid arthritis, unspecified (principal); I10 Essential (primary) hypertension; Z88.0 Allergy status to penicillin
CPT/HCPCS: 80053; 84703; 85025; 96374; 96375; 99284; J1885; J2930